=== PATIENT | male | born 1945 | race African-American/Black ===

== ENCOUNTER 2017-01-21 13:36 | Emergency (ER) | payer MEDICARE ==
[~2017-01-21] VITALS: Ht 175.3 cm; Wt 90.1 kg
[2017-01-21] MEDS ORDERED: LISI-167 PO (14:54)
[2017-01-21] MEDS ORDERED: GLYC1SUP71 PR (14:54)
[2017-01-21] MEDS ORDERED: LOVA10TA PO (14:54)
[2017-01-21] MEDS ORDERED: ASPI-496 PO (14:54)
[2017-01-21] MEDS ORDERED: CETI-237 PO (14:54)
[2017-01-21] MEDS ORDERED: GLIP1TAB4 PO (14:54)
[2017-01-21] MEDS ORDERED: SODIUM CHLORIDE FLUSH 10ML SYR IVF ONE (15:00)
[2017-01-21] MEDS ORDERED: SODIUM CHLORIDE 0.9% 1,000ML IVBOLUS ONE (15:00)
[2017-01-21 15:05] LABS: HEMOGLOBIN 14.9 g/dL (13.7-18.0)
[2017-01-21 15:17] LABS: ASPARTATE AMINO TRANSFERASE 20 U/L (15-37); BLOOD UREA NITROGEN 15 mg/dL (7-18)
[2017-01-21 15:23] LABS: IS PT STATUS REG ER OR PRE ER? YES
[2017-01-21] MEDS ORDERED: OMNIPAQUE 350 MG/ML, 100ML BOTTLE ONE (16:29)
[2017-01-21 17:14] VITALS: BP 121/62
== END 2017-01-21 19:00 | disposition home or self-care (01) ==
LOC: ED 18:54
DX: I71.4 Abdominal aortic aneurysm, without rupture (principal); E11.9 Type 2 diabetes mellitus without complications; I10 Essential (primary) hypertension
CPT/HCPCS: 36415; 74022; 74177; 80053; 81003; 83605; 83690; 84484; 85025; 93005; 96360; 99285; J7030; Q9967